=== PATIENT | female | born 1985 | race Caucasian/White ===

== ENCOUNTER 2017-06-19 20:37 | Emergency (ER) | payer OTHER ==
[2017-06-19 20:44] VITALS: BP 109/67; PULSE 86; RESP 16; TEMP 98.4; O2SAT 98
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
--- NOTE | 2017-06-20 09:34 | RAD ---
PROCEDURE: Cervical Spine Radiographs. HISTORY: Pain. COMPARISON: None. FINDINGS: BONES: Alignment maintained. No fracture. Dens Intact. DISC SPACES: Normal. SOFT TISSUES: Normal. No prevertebral soft tissue swelling. OTHER FINDINGS: None. IMPRESSION: Normal cervical spine radiographs
== END 2017-06-19 22:01 | disposition home or self-care (01) ==
LOC: H.ER 20:37
DX: S13.4XXA Sprain of ligaments of cervical spine, initial encounter (principal); R51 Headache; F41.9 Anxiety disorder, unspecified; V89.2XXA Person injured in unspecified motor-vehicle accident, traffic, initial encounter